=== PATIENT | male | born 1940 | race Caucasian/White ===

== ENCOUNTER → 2017-02-13 | Outpatient (CLI) | payer MEDICARE, OTHER ==
[2017-02-13 11:14] LABS: ASPARTATE AMINO TRANSFERASE 11 U/L (15-37); BLOOD UREA NITROGEN 15 mg/dL (7-18)
== END | disposition home or self-care (01) ==
LOC: LAB 07:45
PROVIDERS: ATTEND Internal Medicine Cardiovascular Disease
DX: E78.2 Mixed hyperlipidemia (principal); I10 Essential (primary) hypertension
CPT/HCPCS: 36415; 80053; 80061

== ENCOUNTER → 2017-07-18 | Outpatient (CLI) | payer MEDICARE, OTHER | END | disposition home or self-care (01) | LOC: LAB 11:42 | PROVIDERS: ATTEND Nurse Practitioner Family | DX: R73.01 Impaired fasting glucose (principal) | CPT/HCPCS: 36415; 83036 ==

== ENCOUNTER → 2018-01-10 | Outpatient (CLI) | payer MEDICARE, OTHER ==
[2018-01-10 14:44] LABS: BASOPHILS # (AUTO) 0.03 x10^3/uL (0-0.1); BASOPHILS % (AUTO) 0 % (0-1); EOSINOPHILS # (AUTO) 0.12 x10^3/uL (0-0.4); EOSINOPHILS % (AUTO) 2 % (1-7); LYMPHOCYTES % (AUTO) 19 % (22-44); MD NO; MEAN CORPUSCULAR HEMOGLOBIN 31.8 pg (27.5-34.5); MEAN CORPUSCULAR HGB CONC 33.4 g/dL (33.2-36.2); MEAN CORPUSCULAR VOLUME 95.2 fL (81-97); MEAN PLATELET VOLUME 6.8 fL (7.4-10.4); MONOCYTES # (AUTO) 0.58 x10^3/uL (0.2-0.8); MONOCYTES % (AUTO) 7 % (2-9); NEUTROPHILS # (AUTO) 5.89 x10^3/uL (1.8-6.8); NEUTROPHILS % (AUTO) 72 % (42-75); PLATELET COUNT 250 x10^3/uL (130-400); RED CELL DISTRIBUTION WIDTH 12.9 % (9.4-14.8)
[2018-01-10 14:52] LABS: ALBUMIN 3.7 g/dL (3.4-5.0); ANION GAP 5 mmol/L (5-15); CALCIUM 8.8 mg/dL (8.5-10.1); CHLORIDE 107 mmol/L (98-107)
[2018-01-10 14:58] LABS: HEMOGLOBIN A1C 5.9 % (4.2-6.3)
[2018-01-10 15:17] LABS: CREATININE 0.83 mg/dL (0.7-1.3)
[2018-01-10 15:18] LABS: ALANINE AMINOTRANSFERASE 20 U/L (12-78); ALKALINE PHOSPHATASE 81 U/L (45-117); BILIRUBIN,TOTAL 0.8 mg/dL (0.2-1.0); CHOL/HDL RATIO 3.6; CHOLESTEROL, TOTAL 228 mg/dL (140-239); FOLATE LEVEL 11.8 ng/mL (3.1-17.5); HDL CHOL % 28 % (26-37); HDL CHOLESTEROL (DIRECT) 63 mg/dL (40-60); LDL CHOLESTEROL,CALCULATED 144 mg/dL (54-169); LDL/HDL RATIO 2.3 (0.5-3.0); TOTAL PROTEIN 7.3 g/dL (6.4-8.2); TRIGLYCERIDES 103 mg/dL (50-200); VLDL CHOLESTEROL 21 mg/dL (0-25)
== END | disposition home or self-care (01) ==
LOC: LAB 14:25
PROVIDERS: ATTEND Nurse Practitioner Family
DX: E78.2 Mixed hyperlipidemia (principal); N40.0 Benign prostatic hyperplasia without lower urinary tract symptoms; I10 Essential (primary) hypertension; R35.1 Nocturia; F41.9 Anxiety disorder, unspecified; R79.89 Other specified abnormal findings of blood chemistry
CPT/HCPCS: 36415; 80053; 80061; 82607; 82746; 83036; 84443; 85025

== ENCOUNTER → 2018-08-01 | Outpatient (CLI) | payer MEDICARE, OTHER ==
[2018-08-01 13:32] LABS: CHLORIDE 107 mmol/L (98-107)
[2018-08-01 13:42] LABS: ALANINE AMINOTRANSFERASE 19 U/L (12-78); ALBUMIN 3.6 g/dL (3.4-5.0); ALKALINE PHOSPHATASE 98 U/L (45-117); ANION GAP 9 mmol/L (5-15); BILIRUBIN,TOTAL 0.9 mg/dL (0.2-1.0); CALCIUM 9.1 mg/dL (8.5-10.1); CHOL/HDL RATIO 3.5; CHOLESTEROL, TOTAL 204 mg/dL (140-239); CREATININE 0.92 mg/dL (0.7-1.3); HDL CHOL % 28 % (26-37); HDL CHOLESTEROL (DIRECT) 58 mg/dL (40-60); LDL CHOLESTEROL,CALCULATED 133 mg/dL (54-169); LDL/HDL RATIO 2.3 (0.5-3.0); TOTAL PROTEIN 7.3 g/dL (6.4-8.2); TRIGLYCERIDES 64 mg/dL (50-200); VLDL CHOLESTEROL 13 mg/dL (0-25)
== END | disposition home or self-care (01) ==
LOC: CFH 07:05
PROVIDERS: ATTEND Internal Medicine Cardiovascular Disease
DX: Z00.01 Encounter for general adult medical examination with abnormal findings (principal); Z13.89 Encounter for screening for other disorder; I10 Essential (primary) hypertension; E78.2 Mixed hyperlipidemia; H61.22 Impacted cerumen, left ear; R35.1 Nocturia; R41.9 Unspecified symptoms and signs involving cognitive functions and awareness; R73.01 Impaired fasting glucose; Z68.32 Body mass index [BMI] 32.0-32.9, adult
CPT/HCPCS: 36415; 80053; 80061

== ENCOUNTER 2019-04-29 12:12 | Outpatient (CLI) | payer MEDICARE, OTHER ==
[2019-04-29 12:27] LABS: BASOPHILS # (AUTO) 0.02 x10^3/uL (0-0.1); BASOPHILS % (AUTO) 0 % (0-1); EOSINOPHILS # (AUTO) 0.11 x10^3/uL (0-0.4); EOSINOPHILS % (AUTO) 1 % (1-7); LYMPHOCYTES # (AUTO) 1.43 x10^3/uL (1-3.4); LYMPHOCYTES % (AUTO) 18 % (22-44); MD NO; MEAN CORPUSCULAR HEMOGLOBIN 32.2 pg (27.5-34.5); MEAN CORPUSCULAR HGB CONC 33.3 g/dL (33.2-36.2); MEAN CORPUSCULAR VOLUME 96.6 fL (81-97); MEAN PLATELET VOLUME 6.9 fL (7.4-10.4); MONOCYTES # (AUTO) 0.53 x10^3/uL (0.2-0.8); MONOCYTES % (AUTO) 7 % (2-9); NEUTROPHILS # (AUTO) 5.75 x10^3/uL (1.8-6.8); NEUTROPHILS % (AUTO) 73 % (42-75); PLATELET COUNT 244 x10^3/uL (130-400); RED CELL DISTRIBUTION WIDTH 13.9 % (9.4-14.8)
[2019-04-29 12:38] LABS: ALBUMIN 3.7 g/dL (3.4-5.0); ANION GAP 7 mmol/L (5-15); CALCIUM 9.2 mg/dL (8.5-10.1); CHLORIDE 108 mmol/L (98-107)
[2019-04-29 13:05] LABS: ALANINE AMINOTRANSFERASE 20 U/L (12-78); ALKALINE PHOSPHATASE 80 U/L (45-117); BILIRUBIN,TOTAL 0.7 mg/dL (0.2-1.0); CREATININE 0.92 mg/dL (0.7-1.3); FREE T4 (FREE THYROXINE) 0.99 ng/dL (0.76-1.46); TOTAL PROTEIN 7.2 g/dL (6.4-8.2)
[2019-04-29 13:07] LABS: FOLATE LEVEL > 20.0 ng/mL (3.1-17.5)
== END 2019-04-29 23:59 | disposition home or self-care (01) ==
LOC: LAB 12:12
PROVIDERS: ATTEND Nurse Practitioner Family
DX: I10 Essential (primary) hypertension (principal); R41.89 Other symptoms and signs involving cognitive functions and awareness; R41.9 Unspecified symptoms and signs involving cognitive functions and awareness
CPT/HCPCS: 36415; 80053; 82607; 82746; 84439; 84443; 85025

== ENCOUNTER 2019-09-24 16:20 | Emergency (ER) | payer MEDICARE, OTHER ==
[~2019-09-24] VITALS: Ht 190.5 cm; Wt 101.5 kg
--- NOTE | 2019-09-24 16:58 | NUR ---
PT SISTER STS THAT PT IS MORE CONFUSED THAN NORMAL OVER THE LAST MONTH. PT MAKING STATEMENTS LIKE "I WAS JUST WALKING ALONG THESE THINGS HERE BOTH THESE MATCH." PT GESTURING TO BOXES OF GLOVES ON THE COUNTER. PT ABLE TO FOLLOW COMMANDS BUT REMAINS CERTAIN THAT HE IS IN GOOD HEALTH AND HAS NO MEDICAL PROBLEMS. PER SISTER PT HAS BEEN HAVING URINARY PROBLEMS FOR LAST YEAR, MAINLY RENTENION AND HAS TO SELF CATH, OVER THE PAST MONTH PT HAS GOTTEN MORE CONFUSED AND HIS STATEMENTS DO NOT MAKE SENSE.
--- NOTE | 2019-09-24 16:58 | NUR ---
THIS IS A 78Y M WITH PRIMARY PROGRESSIVE EPHASIA AND SEMANTIC DEMENTIA. PT WAS WANDERING AROUND THE ROOM UNABLE TO STATE WHY HE IS HERE. PT STATES HE FEELS GREAT AND HAS NO MEDICAL COMPLAINT. PT IS A/O X3 AND COOPERATIVE. PT DOES NOT KNOW THE YEAR OR PRESIDENT BUT CAN STATE HIS NAME AND BIRTHDATE AND ALLERGIES, AND THAT WE ARE AT THE HOSPITAL. PT HAS HX OF URINARY RENTENTION AND HOME HEALTH NURSE EXPRESSED CONCERN ABOUT UTI AND PT NOT SELF CATHING OFTEN HE SHOULD. PT IS CONNECTED TO ALL MONITORING, VSS, CALL LIGHT WITHIN REACH. SISTER AT BEDSIDE.
--- NOTE | 2019-09-24 17:04 | NUR ---
URINE SAMPLE COLLECTED AND SENT TO LAB
[2019-09-24 17:30] LABS: CULTURE INDICATED? YES; MICROSCOPIC INDICATED
[2019-09-24 17:49] LABS: BASOPHILS # (AUTO) 0.05 x10^3/uL (0-0.1); BASOPHILS % (AUTO) 1 % (0-1); EOSINOPHILS # (AUTO) 0.15 x10^3/uL (0-0.4); EOSINOPHILS % (AUTO) 2 % (1-7); LYMPHOCYTES % (AUTO) 20 % (22-44); MD NO; MEAN CORPUSCULAR HEMOGLOBIN 32.6 pg (27.5-34.5); MEAN CORPUSCULAR HGB CONC 33.5 g/dL (33.2-36.2); MEAN CORPUSCULAR VOLUME 97.3 fL (81-97); MEAN PLATELET VOLUME 7.6 fL (7.4-10.4); MONOCYTES # (AUTO) 0.42 x10^3/uL (0.2-0.8); MONOCYTES % (AUTO) 7 % (2-9); NEUTROPHILS # (AUTO) 4.59 x10^3/uL (1.8-6.8); NEUTROPHILS % (AUTO) 71 % (42-75); PLATELET COUNT 204 x10^3/uL (130-400); RED BLOOD COUNT 4.22 x10^6/uL (4.38-5.82); RED CELL DISTRIBUTION WIDTH 13.6 % (9.4-14.8)
[2019-09-24 17:54] LABS: ALBUMIN 3.4 g/dL (3.4-5.0); CALCIUM 8.6 mg/dL (8.5-10.1)
[2019-09-24 17:58] LABS: ALANINE AMINOTRANSFERASE 21 U/L (12-78); ALKALINE PHOSPHATASE 68 U/L (45-117); BILIRUBIN,TOTAL 0.5 mg/dL (0.2-1.0); CREATININE 0.83 mg/dL (0.7-1.3); TOTAL PROTEIN 6.7 g/dL (6.4-8.2)
[2019-09-24 18:02] LABS: ANION GAP 2 mmol/L (5-15); CHLORIDE 110 mmol/L (98-107)
--- NOTE | 2019-09-24 18:08 | NUR ---
ALL RESULTS BACK AT THIS TIME CHART UP FOR RECHECK
[2019-09-24] MEDS ORDERED: CEFTRIAXONE PMX 1GM/50ML 50 ML IV ONE (18:30)
--- NOTE | 2019-09-24 18:51 | NUR ---
MD AT BEDSIDE TO DISCUSS POC WITH PT AND FAMILY
--- NOTE | 2019-09-24 18:51 | NUR ---
MD TO BEDSIDE TO DISCUSS POC WITH PT AND FAMILY
[2019-09-24] MEDS ORDERED: CEFTRIAXONE PMX 1GM/50ML 50 ML ONE (18:59)
[2019-09-24 19:17] VITALS: BP 144/80
--- NOTE | 2019-09-24 19:18 | NUR ---
IV ABX STARTED. PT RESTING ON ZEERHEYDI SISTER AT BEDSIDE.
== END 2019-09-24 20:05 | disposition home or self-care (01) ==
LOC: ED 18:37
DX: N30.00 Acute cystitis without hematuria (principal)
CPT/HCPCS: 36415; 80053; 81001; 85025; 87077; 87086; 96365; 99283; J0696